=== PATIENT | female | born 1980 | race Caucasian/White ===

== ENCOUNTER 2016-05-15 21:59 | Emergency (ER) | payer OTHER ==
[~2016-05-15] VITALS: Ht 162.6 cm; Wt 79.7 kg
[~2016-05-15 21:59] MED LIST: CLONAZEPAM0.5 MG PO; DEPAKOTE250 MG PO; DEXEDRINE10 MG PO; IBUPROFEN800 MG PO
[2016-05-15] MEDS ORDERED: KLONOPIN1 MG PO (22:58)
[2016-05-15] MEDS ORDERED: GEODON40 MG PO (22:58)
[2016-05-15] MEDS ORDERED: GEODON80 MG PO (22:58)
[2016-05-15] MEDS ORDERED: GEODON60 MG PO (23:23)
[2016-05-16 00:17] VITALS: BP 117/90
== END 2016-05-16 00:17 | disposition home or self-care (01) ==
LOC: EME 21:59
DX: F41.9 Anxiety disorder, unspecified (principal); F32.9 Major depressive disorder, single episode, unspecified; Z76.0 Encounter for issue of repeat prescription; F17.200 Nicotine dependence, unspecified, uncomplicated
CPT/HCPCS: 99281; 99283

== ENCOUNTER 2016-07-17 01:04 | Emergency (ER) | payer OTHER ==
[~2016-07-17] VITALS: Ht 162.6 cm; Wt 82.1 kg
[~2016-07-17 01:04] MED LIST changes: +GEODON40 MG PO; +GEODON60 MG PO; +GEODON80 MG PO; +KLONOPIN1 MG PO
[2016-07-17 01:22] LABS: HEMATOCRIT 36.8 % (36.0-46.0); MCH 30.8 PG (29.0-34.0); MCHC 34.2 G/DL (30.0-36.0); MEAN PLAT.VOLUME 10.2 uM^3 (9.5-12.4); PLATELET COUNT 195 K/uL (156-360); RBC DIS.WIDTH-CV 13.9 % (11.8-14.6); RBC DIS.WIDTH-SD 45.4 % (39-53); RED BLOOD COUNT 4.09 M/uL (3.80-5.20); WHITE BLOOD COUNT 5.3 K/uL (4.1-10.2)
[2016-07-17 01:23] LABS: ADD MIUA? YES; BILIRUBIN NEGATIVE; BLOOD LARGE; COLOR STRAW ((YELLOW)); GLUCOSE (STRIP) NEGATIVE; KETONES NEGATIVE; LEUKOCYTES TRACE; NITRITE NEGATIVE; PROTEIN (STRIP) NEGATIVE; SPECIFIC GRAVITY 1.003 (1.000-1.030); UROBILINOGEN 0.2 MG/DL (0.2-1.0)
[2016-07-17 01:27] LABS: BACTERIA RARE /HPF; EPITHELIAL CELLS RARE /HPF; MUCUS NONE SEEN /LPF; RED BLOOD CELLS 0-5 /HPF (0-5); UCUL ADDED? NO; WHITE BLOOD CELLS 0-5 /HPF (0-5)
[2016-07-17 01:31] LABS: CHLORIDE 110 mEq/L (99-109); SODIUM 140 mEq/L (136-147)
[2016-07-17 01:33] LABS: GLUCOSE 79 mg/dL (70-99)
[2016-07-17 01:34] LABS: ANION GAP 6 MEQ/L (2-14)
[2016-07-17 01:35] LABS: TOTAL BILIRUBIN 0.3 mg/dL (0.0-1.0)
[2016-07-17 01:37] LABS: ALKALINE PHOSPHATASE 66 IU/L (3-129); GFR ESTIMATE (CALCULATED) > 59 mL/min/
[2016-07-17 01:38] LABS: UREA NITROGEN (BUN) 11 mg/dL (9-23)
[2016-07-17 01:46] LABS: QUANTITATIVE HCG < 4.0 MIU/ML
[2016-07-17] MEDS ORDERED: SILENOR3 MG PO (01:57)
[2016-07-17 02:05] VITALS: BP 98/56
== END 2016-07-17 02:07 | disposition home or self-care (01) ==
LOC: EXP 01:04 → EME 01:04 → EXP 02:07
DX: T43.211A Poisoning by selective serotonin and norepinephrine reuptake inhibitors, accidental (unintentional), initial encounter (principal); T45.0X1A Poisoning by antiallergic and antiemetic drugs, accidental (unintentional), initial encounter; G47.00 Insomnia, unspecified; R42 Dizziness and giddiness; F31.9 Bipolar disorder, unspecified; F90.9 Attention-deficit hyperactivity disorder, unspecified type; F17.200 Nicotine dependence, unspecified, uncomplicated
CPT/HCPCS: 80053; 81003; 84702; 85027; 93005; 99281; 99283; J2060

== ENCOUNTER 2016-12-07 19:02 | Emergency (ER) | payer OTHER ==
[~2016-12-07] VITALS: Ht 162.6 cm; Wt 85.8 kg
[~2016-12-07 19:02] MED LIST changes: +SILENOR3 MG PO
[2016-12-07] MEDS ORDERED: GEODON60 MG PO (20:18)
[2016-12-07] MEDS ORDERED: GEODON80 MG PO (20:18)
[2016-12-07 22:09] VITALS: BP 138/79
== END 2016-12-07 22:10 | disposition home or self-care (01) ==
LOC: EXP 19:02 → EME 19:02 → EXP 22:10
DX: F41.9 Anxiety disorder, unspecified (principal); Z76.0 Encounter for issue of repeat prescription; F32.9 Major depressive disorder, single episode, unspecified; F90.9 Attention-deficit hyperactivity disorder, unspecified type; F17.200 Nicotine dependence, unspecified, uncomplicated; Z88.0 Allergy status to penicillin; Z88.8 Allergy status to other drugs, medicaments and biological substances
CPT/HCPCS: 99281; 99283

== ENCOUNTER 2017-02-02 08:29 | Emergency (ER) | payer OTHER ==
[~2017-02-02] VITALS: Ht 162.6 cm; Wt 91.1 kg
[2017-02-02] MEDS ORDERED: SUDAFED 12-HOU120 MG PO (11:44)
[2017-02-02] MEDS ORDERED: PROVENTIL HFA6.7 GM IH (11:44)
[2017-02-02] MEDS ORDERED: PREDNISONE20 MG PO (11:44)
[2017-02-02] MEDS ORDERED: ZITHROMAX250 MG PO (11:44)
[2017-02-02 12:00] VITALS: BP 120/77
== END 2017-02-02 12:02 | disposition home or self-care (01) ==
LOC: EME 08:29
DX: J20.9 Acute bronchitis, unspecified (principal); H66.93 Otitis media, unspecified, bilateral; F17.200 Nicotine dependence, unspecified, uncomplicated
CPT/HCPCS: 94640 76; 99281; 99285; J7512

== ENCOUNTER 2017-05-11 02:12 | Emergency (ER) | payer OTHER ==
[~2017-05-11] VITALS: Ht 162.6 cm; Wt 99.7 kg
[~2017-05-11 02:12] MED LIST changes: +PREDNISONE20 MG PO; +PROVENTIL HFA6.7 GM IH; +SUDAFED 12-HOU120 MG PO; +ZITHROMAX250 MG PO
[2017-05-11 05:07] LABS: HEMATOCRIT 35.8 % (36.0-46.0); HEMOGLOBIN 12.3 G/DL (11.9-15.5); MCH 30.5 PG (29.0-34.0); MCHC 34.4 G/DL (30.0-36.0); MCV 88.8 FL (83-99); PLATELET COUNT 223 K/uL (156-360); RBC DIS.WIDTH-CV 14.2 % (11.8-14.6); RBC DIS.WIDTH-SD 46.1 % (39-53); RED BLOOD COUNT 4.03 M/uL (3.80-5.20); WHITE BLOOD COUNT 8.7 K/uL (4.1-10.2)
[2017-05-11 05:18] LABS: CHLORIDE 110 mEq/L (99-109); POTASSIUM 3.4 mEq/L (3.7-5.4); SODIUM 141 mEq/L (136-147)
[2017-05-11 05:20] LABS: GLUCOSE 99 mg/dL (70-99)
[2017-05-11 05:24] LABS: CREATININE 0.8 mg/dL (0.6-1.3); GFR ESTIMATE (CALCULATED) > 59 mL/min/
[2017-05-11 05:25] LABS: UREA NITROGEN (BUN) 11 mg/dL (9-23)
[2017-05-11] MEDS ORDERED: PREDNISONE20 MG PO (05:49)
[2017-05-11] MEDS ORDERED: ZITHROMAX Z-PA250 MG PO (05:49)
[2017-05-11] MEDS ORDERED: VENTOLIN HFA18 GM IH (05:49)
[2017-05-11 06:10] VITALS: BP 129/92
== END 2017-05-11 06:11 | disposition home or self-care (01) ==
LOC: EME 02:12
PROVIDERS: Emergency Medicine
DX: J20.9 Acute bronchitis, unspecified (principal); J45.909 Unspecified asthma, uncomplicated; F90.9 Attention-deficit hyperactivity disorder, unspecified type; F32.9 Major depressive disorder, single episode, unspecified; F41.9 Anxiety disorder, unspecified; F17.200 Nicotine dependence, unspecified, uncomplicated; Z88.0 Allergy status to penicillin; Z88.1 Allergy status to other antibiotic agents; Z88.8 Allergy status to other drugs, medicaments and biological substances
CPT/HCPCS: 71046; 80048; 81003; 85027; 94640; 94644; 99281; 99285; J1100; J7030

== ENCOUNTER 2017-05-26 07:17 | Emergency (ER) | payer OTHER ==
[~2017-05-26] VITALS: Ht 162.6 cm; Wt 100.8 kg
[~2017-05-26 07:17] MED LIST changes: +VENTOLIN HFA18 GM IH; +ZITHROMAX Z-PA250 MG PO
[2017-05-26 07:22] VITALS: BP 135/84
== END 2017-05-26 07:54 | disposition left against medical advice (07) ==
LOC: EME 07:17
DX: Z76.0 Encounter for issue of repeat prescription (principal); F41.9 Anxiety disorder, unspecified; F32.9 Major depressive disorder, single episode, unspecified; F31.9 Bipolar disorder, unspecified; F17.200 Nicotine dependence, unspecified, uncomplicated; Z88.0 Allergy status to penicillin; Z88.8 Allergy status to other drugs, medicaments and biological substances
CPT/HCPCS: 99281; 99284

== ENCOUNTER 2017-09-04 00:59 | Emergency (ER) | payer OTHER ==
[~2017-09-04] VITALS: Ht 162.6 cm; Wt 102.7 kg
[2017-09-04] MEDS ORDERED: PERCOCET 5/31 TABLET PO (04:29)
[2017-09-04 04:44] VITALS: BP 110/77
== END 2017-09-04 04:45 | disposition home or self-care (01) ==
LOC: EME 00:59
PROC: 2W3QX1Z Immobilization of Right Lower Leg using Splint (ICD-10-PCS; principal; 2017-09-04)
DX: S92.001A Unspecified fracture of right calcaneus, initial encounter for closed fracture (principal); Y93.39 Activity, other involving climbing, rappelling and jumping off; F32.9 Major depressive disorder, single episode, unspecified; F41.9 Anxiety disorder, unspecified; Z88.0 Allergy status to penicillin; F17.200 Nicotine dependence, unspecified, uncomplicated
CPT/HCPCS: 73610; 73700; 99281; 99285; J1200; J1885; J2060; J2270; J2405; J3010; J3486

== ENCOUNTER 2017-09-20 11:08 | Day surgery (SDC) | payer OTHER ==
[~2017-09-20] VITALS: Ht 165.1 cm; Wt 116.6 kg
[~2017-09-20 11:08] MED LIST changes: +ADDERALL XR 3030 MG PO; +BENADRYL25 MG PO; +NEURONTIN300 MG PO; +PERCOCET 5/31 TABLET PO; +ROXICODONE5 MG PO
[2017-09-20 11:40] VITALS: BP 141/98
== END 2017-09-20 12:25 | disposition home or self-care (01) ==
LOC: SDC 11:08
PROVIDERS: Podiatrist Foot & Ankle Surgery
DX: S92.001A Unspecified fracture of right calcaneus, initial encounter for closed fracture (principal); Z79.82 Long term (current) use of aspirin; M79.89 Other specified soft tissue disorders; Z53.09 Procedure and treatment not carried out because of other contraindication
CPT/HCPCS: 81025